=== PATIENT | male | born 1940 | race Caucasian/White ===

== ENCOUNTER 2020-11-19 17:16 | Inpatient (IN) | payer OTHER, BC ==
[2020-11-19 17:40] VITALS: BMI 23.9
[2020-11-19] MEDS ORDERED: ACETAMINOPHEN 500 MG TABLET (FP) PO ONE (18:06)
[2020-11-19] MEDS ORDERED: DIPHTH,PERTUSS(ACELL),TET 0.5 ML DISP.SYRIN IM ONE ×2 (18:07→18:26)
[2020-11-19] MEDS ORDERED: ACETAMINOPHEN 325 MG TABLET (FP) ONE (18:26)
[2020-11-19 19:22] LABS: BASO % 0.9 % (0-2.0); EOS % 0.9 % (0-4.5); HEMATOCRIT 36.7 % (35.4-49); HEMOGLOBIN 12.2 GM/dL (11.7-16.9); LYMPH % 7.1 % (8-40); MCH 30.2 pg (25.7-33.7); MCHC 33.4 g/dl (32.0-35.9); MEAN CELL VOLUME 90.4 fl (80-96); MEAN PLT VOLUME 9.7 fl (7.5-11.1); MONO % 5.7 % (3.8-10.2); NEUT % 85.4 % (42.8-82.8); PLATELET COUNT 182 K/MM3 (134-434); RBC 4.06 M/mm3 (4.00-5.60); RDW 14.5 % (11.9-15.9); WHITE BLOOD COUNT 6.7 K/mm3 (4.0-10.0)
[2020-11-19 19:37] LABS: CHLORIDE 94 mmol/L (98-107); SODIUM 128 mmol/L (136-145)
[2020-11-19 19:40] LABS: ALBUMIN 2.9 g/dl (3.4-5.0); ANION GAP 8 MMOL/L (8-16); BLOOD UREA NITROGEN 7.6 mg/dL (7-18); CALCIUM 8.4 mg/dL (8.5-10.1); CO2 26 mmol/L (21-32); GLUCOSE,RANDOM 96 mg/dL (74-106)
[2020-11-19 19:42] LABS: SGOT/AST 18 U/L (15-37); SGPT/ALT 11 U/L (13-61)
[2020-11-19 19:43] LABS: CREATININE 0.5 mg/dL (0.55-1.3)
[2020-11-19 19:44] LABS: BILIRUBIN,TOTAL 0.8 mg/dL (0.2-1); TOT PROT 6.4 g/dl (6.4-8.2)
[2020-11-19 19:45] LABS: ALK PHOS 61 U/L (45-117)
[2020-11-19 21:35] LABS: PH,URINE 7.5 (5.0-8.0); URINE APPEARANCE CLEAR; URINE BILIRUBIN NEGATIVE (NEGATIVE); URINE COLOR RED; URINE GLUCOSE (UA) NEGATIVE (NEGATIVE); URINE KETONE NEGATIVE (NEGATIVE); URINE LEUK ESTERASE 3+ (NEGATIVE); URINE NITRITE NEGATIVE (NEGATIVE); URINE PROTEIN 2+ (NEGATIVE); URINE UROBILINOGEN 0.2 mg/dL (0.2-1.0)
[2020-11-19 23:35] LABS: EPI CELLS 49.4 /uL (0-25.1); HYALINE CASTS 0.89 /uL (0-3.1); URINE BACTERIA 4.7 /uL (0-1359); URINE RBC 89.9 /uL (0-23.9); URINE WBC 56.2 /uL (0-25.8); YEAST NEGATIVE (NEGATIVE)
[2020-11-20] MEDS ORDERED: ACETAMINOPHEN 325 MG TABLET (FP) PO PRN (00:22)
[2020-11-20] MEDS: MEROPENEM 1 GM in DEXTROSE 5%-WATER 100 ML IVPB SCH ×2 (02:14→14:49)
[2020-11-20] MEDS ORDERED: MEROPENEM 1 GM VIAL (RESTRICTED TO ID) IVPB ONE ×2 (02:15→09:42)
[2020-11-20 05:55] LABS: HEMATOCRIT 37.6 % (35.4-49); HEMOGLOBIN 12.6 GM/dL (11.7-16.9); MCH 30.3 pg (25.7-33.7); MCHC 33.5 g/dl (32.0-35.9); MEAN CELL VOLUME 90.2 fl (80-96); PLATELET COUNT 179 K/MM3 (134-434); RBC 4.17 M/mm3 (4.00-5.60); RDW 14.6 % (11.9-15.9); WHITE BLOOD COUNT 5.7 K/mm3 (4.0-10.0)
[2020-11-20 06:18] LABS: CALCIUM 8.8 mg/dL (8.5-10.1)
[2020-11-20 06:19] LABS: ALBUMIN 2.8 g/dl (3.4-5.0); BLOOD UREA NITROGEN 6.2 mg/dL (7-18); MAGNESIUM 2.3 mg/dL (1.8-2.4)
[2020-11-20 06:22] LABS: CREATININE 0.5 mg/dL (0.55-1.3)
[2020-11-20 06:23] LABS: BILIRUBIN,TOTAL 0.7 mg/dL (0.2-1); TOT PROT 6.1 g/dl (6.4-8.2)
[2020-11-20 06:42] LABS: PHOSPHOROUS 3.8 mg/dL (2.5-4.9)
[2020-11-20] MEDS: HEPARIN NA (PORCINE) 5,000 UNITS/ML 1ML VIAL SQ SCH ×4 (07:00→16:26)
[2020-11-20] MEDS ORDERED: TAMSULOSIN HCL 0.4 MG CAP ONE (09:43)
[2020-11-20] MEDS ORDERED: PT OWN MED DRAWER 7, Y5N ONE ×2 (09:44→20:50)
[2020-11-20] MEDS ORDERED: VANCOMYCIN 250 MG/5 ML ORAL SOLUTION PO SCH (10:00)
[2020-11-20] MEDS: SACUBITRIL/VALSARTAN 24 MG-26 MG TABLET PO SCH ×2 (10:02→21:35)
[2020-11-20] MEDS: PANTOPRAZOLE SOD 40 MG SUSPENSION PACKET PO SCH (10:02)
[2020-11-20] MEDS: TAMSULOSIN HCL 0.4 MG CAP PO SCH (10:02)
[2020-11-20] MEDS: VANCOMYCIN 250 MG/5 ML ORAL SOLUTION PO SCH (21:35)
[2020-11-20] MEDS ORDERED: LACTOBACILLUS ACIDOPHILUS 1 TABLET PO SCH (22:00)
[2020-11-21] MEDS ORDERED: PT OWN MED DRAWER 7, Y5N ONE (09:15)
[2020-11-21] MEDS: TAMSULOSIN HCL 0.4 MG CAP PO SCH (10:16)
[2020-11-21] MEDS: SACUBITRIL/VALSARTAN 24 MG-26 MG TABLET PO SCH (10:16)
[2020-11-21] MEDS: PANTOPRAZOLE SOD 40 MG SUSPENSION PACKET PO SCH (10:16)
[2020-11-21] MEDS: VANCOMYCIN 250 MG/5 ML ORAL SOLUTION PO SCH (10:16)
[2020-11-21 20:48] VITALS: BP 137/73; PULSE 79; TEMP 98.6
[2020-11-21] MEDS ORDERED: MEROPENEM 1 GM in DEXTROSE 5%-WATER 100 ML IVPB SCH (22:00)
== END 2020-11-21 20:50 | DRG 312 ==
LOC: JER 17:16 → JERBED 22:34 → OBSVTOIN 22:34 → J4W 11-20 17:56
PROVIDERS: ADMIT Internal Medicine; ATTEND Family Medicine
DX: R55 Syncope and collapse (principal); E87.1 Hypo-osmolality and hyponatremia; N39.0 Urinary tract infection, site not specified; I50.22 Chronic systolic (congestive) heart failure; S01.01XA Laceration without foreign body of scalp, initial encounter; S01.111A Laceration without foreign body of right eyelid and periocular area, initial encounter; R31.0 Gross hematuria; I10 Essential (primary) hypertension; R33.9 Retention of urine, unspecified; W19.XXXA Unspecified fall, initial encounter; Y93.9 Activity, unspecified; Y92.89 Other specified places as the place of occurrence of the external cause; Y99.9 Unspecified external cause status
CPT/HCPCS: 36415; 70450-TC; 70486-TC; 71045-TC-FY; 72125-TC; 72170-TC-FY; 80053; 80061; 81003; 82272; 82550; 82962; 83036; 83721; 83735; 84100; 84439; 84443; 84481; 84484; 85025; 85027; 86800; 87040; 87086; 90715; 93005; 93010; 93306-TC; 93880-TC; 97116-GP; 97161-GP; 99285-25; C9803; J1644; U0003; U0005